=== PATIENT | male | born 1990 | race Caucasian/White ===

== ENCOUNTER 2019-01-25 14:52 | Emergency (ER) | payer OTHER ==
[~2019-01-25] VITALS: Ht 182.9 cm; Wt 93.7 kg
[~2019-01-25 14:52] MED LIST: ACET-141 PO; IBUP-1561 PO
[2019-01-25 14:57] VITALS: BP 125/78; PULSE 78; RESP 18; Ht 182.9 cm; Wt 93.7 kg
== END 2019-01-25 15:47 | disposition home or self-care (01) ==
LOC: E/R 14:52
DX: S89.91XA Unspecified injury of right lower leg, initial encounter (principal); W22.8XXA Striking against or struck by other objects, initial encounter; Y92.9 Unspecified place or not applicable; Z87.891 Personal history of nicotine dependence
CPT/HCPCS: 73590; Z7502